=== PATIENT | female | born 1950 | race Asian ===

== ENCOUNTER 2020-08-22 14:28 | Inpatient (IN) | payer MEDICARE ==
[~2020-08-22] VITALS: Ht 154.9 cm; Wt 78.3 kg
--- NOTE | 2020-08-22 14:45 | NUR ---
Note watson in EDM - 08/22/20 at 1449 by ESTHER ED Nurse Note: Pt ambulated to ed stating that she feels like shes being choked, has epigastric stomach pain, headaches, pt reports that she felt hungry angelica that was the pain but after she ate she still didnt feel good
[2020-08-22 14:47] VITALS: BP 171/84
--- NOTE | 2020-08-22 14:49 | NUR ---
ED Nurse Note: Pt ambulated to ed stating that she feels like shes being choked, has substernal chest pain, headaches, pt reports that she felt hungry and that may be why she has headaches but after she ate she still didnt feel good. Pt reports that she took eliquis DOUGH CATCHER and her amlodipine. pt is aox4 on room air, sinus blaine between 45-55
--- NOTE | 2020-08-22 15:02 | NUR ---
ED Nurse Note: Pt ambulated to restroom
--- NOTE | 2020-08-22 15:06 | Emergency Room Report ---
History of Present Illness General Chief Complaint: Chest Pain Source: Patient Present Illness HPI 70-year-old female history of hypertension prediabetes, some form of cardiac problems patient cannot elaborate, presents with chest pain that has been ongoing since 12 PM appears to be aggravated with exertion alleviated throughout severity is moderate, constant endorses some nausea pain is described as sharp pointy no diaphoresis no history of prior heart attacks patient presents for evaluation and treatment Allergies: Coded Allergies: No Known Allergies (Unverified , 08/22/20) COVID-19 Screening Contact w/high risk pt: No Experienced COVID-19 symptoms?: No COVID-19 Testing performed BRAND ADVOCATE: No Patient History Past Medical History: see triage record Reviewed Nursing Documentation: PMH: Agreed; PSxH: Agreed Nursing Documentation-PMH Hx Hypertension: Yes Review of Systems All Other Systems: negative except mentioned in HPI Physical Exam Vital Signs Date Time Temp Pulse Resp B/P (MAP) Pulse Ox O2 Delivery O2 Flow Rate FiO2 08/22/20 14:39 98.1 47 20 171/84 (113) 99 Room Air Sp02 EP Interpretation: reviewed, normal General Appearance: well appearing, no apparent distress, alert Head: normocephalic, atraumatic Eyes: bilateral eye PERRL, bilateral eye EOMI ENT: uvula midline, moist mucus membranes Neck: supple, thyroid normal, supple/symm/no masses Respiratory: lungs clear, no respiratory distress, no retraction, no accessory muscle use Cardiovascular #1: normal peripheral pulses, regular rate, rhythm, no edema, no gallop, no murmur Gastrointestinal: non tender, soft, no guarding, no rebound Musculoskeletal: normal inspection Neurologic: alert, oriented x3 Psychiatric: mood/affect normal Skin: no rash, warm/dry Medical Decision Making Diagnostic Impression: Primary Impression: Chest pain Qualified Codes: R07.9 - Chest pain, unspecified ER Course ddx includes ACS, pulmonary embolism, pneumothorax, pneumonia. Patient given NTG, and Aspirin Plan for admission rule out ACS, patient initially to be transferred spoke with Dr. Benitez at [facility], patient approved to stay at [facility] Patient admitted to Dr. Palencia Laboratory Tests Test 08/22/20 14:45 08/22/20 15:10 08/22/20 18:00 White Blood Count 6.3 K/UL (4.8-10.8) Red Blood Count 5.11 M/UL (4.20-5.40) Hemoglobin 16.6 G/DL (12.0-16.0) H Hematocrit 49.4 % (37.0-47.0) H Mean Corpuscular Volume 97 FL (80-99) Mean Corpuscular Hemoglobin 32.5 PG (27.0-31.0) H Mean Corpuscular Hemoglobin Concent 33.6 G/DL (32.0-36.0) Red Cell Distribution Width 13.6 % (11.6-14.8) Platelet Count 195 K/UL (150-450) Mean Platelet Volume 7.9 FL (6.5-10.1) Neutrophils (%) (Auto) 68.0 % (45.0-75.0) Lymphocytes (%) (Auto) 25.5 % (20.0-45.0) Monocytes (%) (Auto) 4.4 % (1.0-10.0) Eosinophils (%) (Auto) 1.0 % (0.0-3.0) Basophils (%) (Auto) 1.1 % (0.0-2.0) Prothrombin Time 11.4 SEC (9.30-11.50) Prothrombin Time INR 1.0 (0.9-1.1) Activated Partial Thromboplast Time 26 SEC (23-33) Sodium Level 137 MMOL/L (136-145) Potassium Level 3.5 MMOL/L (3.5-5.1) Chloride Level 101 MMOL/L (98-107) Carbon Dioxide Level 27 MMOL/L (21-32) Anion Gap 9 mmol/L (5-15) Blood Urea Nitrogen 9 mg/dL (7-18) Creatinine 0.8 MG/DL (0.55-1.30) Estimated Glomerular Filtration Rate > 60 mL/min (>60) Glucose Level 199 MG/DL (74-106) H Calcium Level 8.5 MG/DL (8.5-10.1) Total Bilirubin 0.6 MG/DL (0.2-1.0) Aspartate Amino Transferase (AST) 28 U/L (15-37) Alanine Aminotransferase (ALT) 20 U/L (12-78) Alkaline Phosphatase 134 U/L (46-116) H Troponin I 0.028 ng/mL (0.000-0.056) 0.028 ng/mL (0.000-0.056) Pro-B-Type Natriuretic Peptide 155 pg/mL (0-125) H Total Protein 7.2 G/DL (6.4-8.2) Albumin 3.7 G/DL (3.4-5.0) Globulin 3.5 g/dL Albumin/Globulin Ratio 1.1 (1.0-2.7) Lipase 104 U/L (73-393) Urine Color Pale yellow Urine Appearance Slightly cloudy Urine pH 7 (4.5-8.0) Urine Specific [place] 1.010 (1.005-1.035) Urine Protein 1+ (NEGATIVE) H Urine Glucose (UA) 2+ (NEGATIVE) H Urine Ketones Negative (NEGATIVE) Urine Blood Negative (NEGATIVE) Urine Nitrite Positive (NEGATIVE) H Urine Bilirubin Negative (NEGATIVE) Urine Urobilinogen Normal MG/DL (0.0-1.0) Urine Leukocyte Esterase Negative (NEGATIVE) Urine RBC 0 /HPF (0 - 2) Urine WBC 0-2 /HPF (0 - 2) Urine Squamous Epithelial Cells Moderate /LPF (NONE/OCC) H Urine Bacteria Moderate /HPF (NONE) H Microbiology Date/Time Source Procedure Growth Status 08/22/20 14:53 Nasopharynx SARS-CoV-2 RdRp Gene Assay - Final Complete EKG Diagnostic Results Troponin ordered: Yes When was troponin ordered?: Aug 22, 2020 - 1431 EKG Time: 14:41 EP Interpretation: Sinus bradycardia, rate 51, QTc 473, no acute ST elevations, normal axis Rhythm Strip Diag. Results Rhythm Strip Time: 15:07 EP Interpretation: yes Rate: 60 Rhythm: NSR, other - PVCs noted Chest X-Ray Diagnostic Results Chest X-Ray Diagnostic Results : Chest X-Ray Ordered: Yes # of Views/Limited/Complete: 1 View Indication: Chest Pain EP Interpretation: Yes Interpretation: no consolidation, no effusion, no pneumothorax, no acute cardiopulmonary disease Impression: No acute disease Electronically Signed by: Jose Mistry MD Last Vital Signs Date Time Temp Pulse Resp B/P (MAP) Pulse Ox O2 Delivery O2 Flow Rate FiO2 08/22/20 14:47 48 20 Room Air 08/22/20 14:47 98.1 171/84 99 Disposition: ADMITTED INPATIENT Condition: Stable Referrals: [facility],REFERR[facility] (PCP) Jose Mistry MD Aug 22, 2020 15:06
--- NOTE | 2020-08-22 15:10 | NUR ---
ED Nurse Note: Urine sent to lab
[2020-08-22 15:14] LABS: ANION GAP 9 mmol/L (5-15); BLOOD UREA NITROGEN 9 mg/dL (7-18); CALCIUM 8.5 MG/DL (8.5-10.1); CARBON DIOXIDE 27 MMOL/L (21-32); CHLORIDE 101 MMOL/L (98-107); CREATININE 0.8 MG/DL (0.55-1.30); POTASSIUM 3.5 MMOL/L (3.5-5.1); SODIUM 137 MMOL/L (136-145)
[2020-08-22] MEDS ORDERED: Nitroglycerin 2% oint pkt TOPIC ONE (15:15)
[2020-08-22 15:21] LABS: BASOPHILS % (AUTO) 1.1 % (0.0-2.0); HEMATOCRIT 49.4 % (37.0-47.0); HEMOGLOBIN 16.6 G/DL (12.0-16.0); LYMPHOCYTES % (AUTO) 25.5 % (20.0-45.0); MEAN CORPUSCULAR VOLUME 97 FL (80-99); MONOCYTES % (AUTO) 4.4 % (1.0-10.0); PLATELET COUNT 195 K/UL (150-450); RED BLOOD COUNT 5.11 M/UL (4.20-5.40); RED CELL DISTRIBUTION WIDTH 13.6 % (11.6-14.8); WHITE BLOOD COUNT 6.3 K/UL (4.8-10.8)
[2020-08-22 15:24] LABS: ALANINE AMINOTRANSFERASE 20 U/L (12-78); ALBUMIN 3.7 G/DL (3.4-5.0); ALBUMIN/GLOBULIN RATIO 1.1 (1.0-2.7); ALKALINE PHOSPHATASE 134 U/L (46-116); ASPARTATE AMINO TRANSFERASE 28 U/L (15-37); BILIRUBIN,TOTAL 0.6 MG/DL (0.2-1.0)
[2020-08-22 15:27] LABS: BILIRUBIN, URINE NEGATIVE (NEGATIVE); COLOR,URINE PALE YELLOW; GLUCOSE, URINE (UA) 2+ (NEGATIVE); KETONES,URINE NEGATIVE (NEGATIVE); LEUKOCYTE ESTERASE ,URINE NEGATIVE (NEGATIVE); NITRITE,URINE POSITIVE (NEGATIVE); PH,URINE 7 (4.5-8.0); PROTEIN,URINE 1+ (NEGATIVE); UROBILINOGEN,URINE NORMAL MG/DL (0.0-1.0)
[2020-08-22 15:40] LABS: APPEARANCE,URINE SLIGHTLY CLOUDY
[2020-08-22] MEDS ORDERED: cefTRIAXone 1 GM in NS 55 ML IVPB ONE (16:00)
[2020-08-22 16:51] VITALS: BP 150/59
--- NOTE | 2020-08-22 16:51 | NUR ---
ED Nurse Note: Pt is resting in bed. VSS.
--- NOTE | 2020-08-22 17:44 | NUR ---
patients son amilcar called stated he wants to be notified when ever the patient get admitted tl#
--- NOTE | 2020-08-22 17:51 | NUR ---
ED Nurse Note: PT given sandwhich, juice, water with ERMD consent
--- NOTE | 2020-08-22 18:02 | NUR ---
ED Nurse Note: repeat trop sent
--- NOTE | 2020-08-22 19:07 | NUR ---
HAND-OFF: Report given to AMADO Durbin.
--- NOTE | 2020-08-22 19:38 | Diagnostic Imaging Report ---
Indication: Reason For Exam: CP Technique: Single AP view of the chest. Comparison: None. Findings: Heart is mildly enlarged when accounting for projection and technique. There is no focal consolidation, pneumothorax or pleural effusion. Osseous structures demonstrate no acute abnormality. Thyroid surgical clips are noted in the upper mediastinum. IMPRESSION: Mild cardiomegaly. No airspace consolidation.
--- NOTE | 2020-08-22 19:55 | NUR ---
ED Nurse Note: Report given to AMADO Concepcion.
[2020-08-22 20:00] VITALS: BP 150/66
--- NOTE | 2020-08-22 20:00 | NUR ---
TRANSFER TO FLOOR: Patient transferred to telemetry as ordered, per ERMD. Report given to AMADO Concepcion. Patient transported via gurney in stable condition with ACLS protocol on registered nurse cardiac telemetry accompanied by RN and materials technician.
--- NOTE | 2020-08-22 20:01 | NUR ---
NURSE NOTES: Pt arrived via gurney from ER. Received report from Priscila FISCHER. Pt in stable condition. Initial assessment done. Pt is admitted for Chest pain. Pt denies any pain. Denies any n/v or SOB. Pt is fully alert and ambulatory steady but weak. Pt is continent. VS T:98.6 HR:54 R:18 BP:150/66 O2:98% on room air. Belongings list verified. cardiac monitor placed on pt running Sinus Bradycardia. No skin issues noted. Pt resting in bed comfortably. Bed in low and locked position, call light within reach, bedside table within reach. Continue to monitor. Orders given by Dr. Palencia. Orders placed.
[2020-08-23] VITALS: BP 144/60
--- NOTE | 2020-08-23 03:03 | Cardiology Progress Note ---
Subjective DATE OF SERVICE: Aug 22, 2020 Cardiology Consult completed See dictation TF Orders and care plan reviewed Objective Last 24 Hour Vital Signs Date Time Temp Pulse Resp B/P (MAP) Pulse Ox O2 Delivery O2 Flow Rate FiO2 08/23/20 00:05 Room Air 08/23/20 00:00 45 08/23/20 00:00 97.7 50 18 144/60 (88) 96 08/22/20 22:57 98.0 08/22/20 20:00 98.6 54 18 150/66 (94) 98 08/22/20 20:00 98.0 62 20 152/65 99 Room Air 08/22/20 16:51 98.1 60 24 150/59 99 Room Air 08/22/20 15:11 171/84 08/22/20 14:47 48 20 Room Air 08/22/20 14:47 98.1 48 20 171/84 99 Room Air 08/22/20 14:39 98.1 47 20 171/84 (113) 99 Room Air Laboratory Tests Test 08/22/20 14:45 08/22/20 15:10 08/22/20 18:00 08/23/20 00:20 White Blood Count 6.3 K/UL (4.8-10.8) Red Blood Count 5.11 M/UL (4.20-5.40) Hemoglobin 16.6 G/DL (12.0-16.0) H Hematocrit 49.4 % (37.0-47.0) H Mean Corpuscular Volume 97 FL (80-99) Mean Corpuscular Hemoglobin 32.5 PG (27.0-31.0) H Mean Corpuscular Hemoglobin Concent 33.6 G/DL (32.0-36.0) Red Cell Distribution Width 13.6 % (11.6-14.8) Platelet Count 195 K/UL (150-450) Mean Platelet Volume 7.9 FL (6.5-10.1) Neutrophils (%) (Auto) 68.0 % (45.0-75.0) Lymphocytes (%) (Auto) 25.5 % (20.0-45.0) Monocytes (%) (Auto) 4.4 % (1.0-10.0) Eosinophils (%) (Auto) 1.0 % (0.0-3.0) Basophils (%) (Auto) 1.1 % (0.0-2.0) Prothrombin Time 11.4 SEC (9.30-11.50) Prothromb Time International Ratio 1.0 (0.9-1.1) Activated Partial Thromboplast Time 26 SEC (23-33) Sodium Level 137 MMOL/L (136-145) Potassium Level 3.5 MMOL/L (3.5-5.1) Chloride Level 101 MMOL/L (98-107) Carbon Dioxide Level 27 MMOL/L (21-32) Anion Gap 9 mmol/L (5-15) Blood Urea Nitrogen 9 mg/dL (7-18) Creatinine 0.8 MG/DL (0.55-1.30) Estimat Glomerular Filtration Rate > 60 mL/min (>60) Glucose Level 199 MG/DL (74-106) H Calcium Level 8.5 MG/DL (8.5-10.1) Total Bilirubin 0.6 MG/DL (0.2-1.0) Aspartate Amino Transf (AST/SGOT) 28 U/L (15-37) Alanine Aminotransferase (ALT/SGPT) 20 U/L (12-78) Alkaline Phosphatase 134 U/L (46-116) H Troponin I 0.028 ng/mL (0.000-0.056) 0.028 ng/mL (0.000-0.056) 0.018 ng/mL (0.000-0.056) Pro-B-Type Natriuretic Peptide 155 pg/mL (0-125) H Total Protein 7.2 G/DL (6.4-8.2) Albumin 3.7 G/DL (3.4-5.0) Globulin 3.5 g/dL Albumin/Globulin Ratio 1.1 (1.0-2.7) Lipase 104 U/L (73-393) Urine Color Pale yellow Urine Appearance Slightly cloudy Urine pH 7 (4.5-8.0) Urine Specific [place] 1.010 (1.005-1.035) Urine Protein 1+ (NEGATIVE) H Urine Glucose (UA) 2+ (NEGATIVE) H Urine Ketones Negative (NEGATIVE) Urine Blood Negative (NEGATIVE) Urine Nitrite Positive (NEGATIVE) H Urine Bilirubin Negative (NEGATIVE) Urine Urobilinogen Normal MG/DL (0.0-1.0) Urine Leukocyte Esterase Negative (NEGATIVE) Urine RBC 0 /HPF (0 - 2) Urine WBC 0-2 /HPF (0 - 2) Urine Squamous Epithelial Cells Moderate /LPF (NONE/OCC) H Urine Bacteria Moderate /HPF (NONE) H Microbiology Date/Time Source Procedure Growth Status 08/22/20 14:53 Nasopharynx SARS-CoV-2 RdRp Gene Assay - Final Complete Yovany Munguia MD Aug 23, 2020 03:03
[2020-08-23 04:00] VITALS: BP 133/55
[2020-08-23] MEDS: Levothyroxine 125mcg tab ORAL SCH (06:28)
--- NOTE | 2020-08-23 07:20 | NUR ---
NURSE HAND-OFF REPORT: Important Events on Shift:[] Patient Status: [] Diet: [] Pending Orders: [Stress Test today] Pending Results/Labs:[] Pending MD notification:[] Latest Vital Signs: Temperature 97.5 , Pulse 45 , B/P 133 /55 , Respiratory Rate 18 , O2 SAT 96 , Room Air, O2 Flow Rate . Vital Sign Comment: [] EKG Rhythm: Sinus Bradycardia Rhythm change?: N MD Notified?: - MD Response: Latest Perales Fall Score: 30 Fall Risk: Medium Risk Safety Measures: Call light , Bed Alarm , Side Rails Side Rails x2, Bed position . Fall Precautions: Report given to [Rebeca FISCHER].
--- NOTE | 2020-08-23 07:20 | NUR ---
NURSE NOTES: pt in bed awake AOx4. pt is NPO and will be having a stress test this morning. 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 Bed is locked an in lowest position. Call light within reach. pt denies any chest pain, she is complaining of wanting to gas and having the need to burp, she feels some acid reflex.
[2020-08-23 08:00] VITALS: BP 143/53
[2020-08-23] MEDS ORDERED: Lexiscan 0.4mg/5ml syringe IV ONE (09:00)
[2020-08-23] MEDS ORDERED: Eliquis 5mg tablet ORAL SCH (09:00)
[2020-08-23] MEDS: Docusate 100mg cap ORAL SCH ×2 (10:10→18:16)
[2020-08-23] MEDS: Lisinopril 20mg tab ORAL SCH (10:10)
--- NOTE | 2020-08-23 11:33 | NUR ---
NURSE NOTES: pt's son brought a picture of medication Eliquis, pt is taking Eliquis 5mg q12hrs at home.
[2020-08-23 12:00] VITALS: BP 142/50
--- NOTE | 2020-08-23 12:06 | NUR ---
CASE MANAGEMENT:REVIEW PATIENT WALKED IN TO ER CC; CHEST/EPIGASTRIC PAIN, NAUSEA AND DIZZINESS SI: CHEST PAIN 98.1 47 20 171/84 99% ON RA TROPONIN(-) IS: ASA PO NITRO 1" IV ROCEPHIN : TO TELEMETRY PLAN: STRESS TEST
--- NOTE | 2020-08-23 15:32 | Cardiology Report ---
APPROVED REPORT EKG Measurement Heart [id number] MN [id number] <Conclusion> Sinus bradycardia with premature supraventricular complexes Cannot rule out Anterior infarct, age undetermined Abnormal ECG
[2020-08-23 16:00] VITALS: BP 135/48
--- NOTE | 2020-08-23 16:30 | History and Physical Report ---
DATE OF ADMISSION: 08/22/2020 HISTORY OF PRESENT ILLNESS: This is a 70-year-old female with history of hypertension, prediabetes, and GERD, who came to the emergency room yesterday with chest pain. The patient states she has been having this for a while and has been told by her outpatient doctor that she needs to have a cardiac stress test. The patient was seen and admitted to the hospital. A workup was initiated. Her initial laboratory testing and EKG have been normal and troponin x3 has been negative. She has been seen by Cardiology and recommendations are noted for a cardiac stress test. PAST MEDICAL HISTORY: Hypertension, gout, chronic anticoagulation with Eliquis, hyperlipidemia, hypothyroidism. REVIEW OF SYSTEMS: Denies any headaches, hematemesis, melena, hematochezia, or weight loss. PHYSICAL EXAMINATION: GENERAL: Reveals a 70-year-old female. HEENT: Unremarkable. CHEST: Lungs show clear breath sounds bilaterally. ABDOMEN: Soft. EXTREMITIES: There is no edema. NEUROLOGIC: Nonfocal. DIAGNOSTIC DATA: EKG, unremarkable. IMPRESSION: 1. Acute coronary syndrome. 2. Chronic anticoagulation. 3. Hypertension. 4. Hyperlipidemia. DISCUSSION: We will admit to the hospital. Consult Cardiology. Stress test ordered. Continue medications. We will follow carefully. Elia Palencia M.D. DR: HARI JOB#: [id number] CC:
[2020-08-23] MEDS: Eliquis 5mg tablet ORAL SCH (18:16)
--- NOTE | 2020-08-23 18:57 | NUR ---
NURSE NOTES: REPORTED INCREASED TROPONIN TO dR. PUGA, AND ALSO. PT WAS SB W/ 1ST AVBLOCK.
--- NOTE | 2020-08-23 19:29 | NUR ---
NURSE HAND-OFF REPORT: Important Events on Shift: pt awaiting stress test results, Troponin trending up notified Dr. Munguia Patient Status: full Diet: cardiac Pending Orders: Pending Results/Labs: Pending MD notification: Latest Vital Signs: Temperature 98.7 , Pulse 58 , B/P 135 /48 , Respiratory Rate 18 , O2 SAT 97 , Room Air, O2 Flow Rate . Vital Sign Comment: EKG Rhythm: Sinus Bradycardia w/ 1avblock Rhythm change?: N MD Notified?: -yes doctor shona CARREON Response: Latest Perales Fall Score: 30 Fall Risk: Medium Risk Safety Measures: Call light , Bed Alarm Zone 1, Side Rails Side Rails x2, Bed position . Fall Precautions: y Yellow Socks y Yellow Gown y Patient Fall Education y Report given to Emili/AMADO .
--- NOTE | 2020-08-23 19:35 | NUR ---
NURSE NOTES: Received report from Rebeca FISCHER. Patient is sitting in semi-fowlers position relaxing watching TV. Patient is in stable condition. Patient is alert and oriented x4 speaks Ukrainian and is able to made need known. No complaints of pain at this time. No s/s of acute distress. Patient has a left hand 20G s/l. Patent and Flushed. No bleeding or erythema noted. Patient was placed on fall precaution but is ambulatory. Patient belonging and call light with in reach. Patient was educated on how to use the call light to call for help and for assistance with needs. Patient verbalized understanding. Bed in lowest position and locked. Will continue plan of care.
[2020-08-23 20:00] VITALS: BP 125/50
[2020-08-23] MEDS ORDERED: Atorvastatin 20mg tab ORAL SCH (21:00)
[2020-08-24] VITALS: BP 130/50
--- NOTE | 2020-08-24 00:37 | Cardiology Progress Note ---
Subjective DATE OF SERVICE: Aug 23, 2020 No chest pain today. Monitor: Sinus with 1st degree AV block and episodes of asymptomatic bradycardia Troponins negative Objective Last 24 Hour Vital Signs Date Time Temp Pulse Resp B/P (MAP) Pulse Ox O2 Delivery O2 Flow Rate FiO2 08/23/20 21:00 Room Air 08/23/20 20:00 97.5 50 18 125/50 (75) 96 08/23/20 20:00 63 08/23/20 16:00 54 08/23/20 16:00 98.7 58 18 135/48 (77) 97 08/23/20 12:00 98.7 61 19 142/50 (80) 96 08/23/20 12:00 47 08/23/20 10:10 143/53 08/23/20 09:00 Room Air 08/23/20 08:00 96.8 56 19 143/53 (83) 96 08/23/20 08:00 52 08/23/20 04:00 97.5 52 18 133/55 (81) 96 08/23/20 04:00 45 HEENT: normal ENT inspection RHYTHM: NSR LUNGS: lungs clear bilaterally CARDIAC: regular rhythm, normal S1 and S2, bradycardia ABDOMEN: normal bowel sounds, non tender, soft, no organomegaly EXTREMITIES: normal range of motion, non-tender, No edema Laboratory Tests Test 08/23/20 07:55 08/23/20 15:47 Troponin I 0.018 ng/mL (0.000-0.056) 0.034 ng/mL (0.000-0.056) Microbiology Date/Time Source Procedure Growth Status 08/22/20 15:10 Urine,Clean Catch Urine Culture - Preliminary NO GROWTH Resulted 08/22/20 14:53 Nasopharynx SARS-CoV-2 RdRp Gene Assay - Final Complete Assessment/Plan Assessment/Plan Possible acute coronary syndrome Hx DVT Hyperlipidemia Sinus bradycardia Hypertension Metabolic syndrome Atrial ectopy Lexiscan stress Antiplt and antilipid rx Final medx regimen to follow - once Lexiscan resulted Yovany Munguia MD Aug 24, 2020 00:37
--- NOTE | 2020-08-24 01:15 | Consultation ---
DATE OF CONSULTATION: 08/22/2020 CARDIOLOGY CONSULTATION REQUESTING PHYSICIAN: Elia Palencia MD REASON FOR CONSULTATION: Chest pain. HISTORY OF PRESENT ILLNESS: This 70-year-old Somali has multiple risk factors for premature and accelerated coronary artery disease. She states that she has a history of labile blood pressure as well and has been hospitalized in the past with chest pain. She was hospitalized at [place] years ago and had a stress test, which she states was "okay," but not normal. She has been managed medically since. She presented to the hospital with chest pain. This pain has been recurring, but increasing in frequency and occurred at rest. She had been recommended in the past to undergo a stress test, but has not been able to complete it. PAST MEDICAL HISTORY: Hypertension, hyperuricemia, history of DVT, hyperlipidemia, hypothyroidism, glucose intolerance. ALLERGIES: None. MEDICATIONS: Reviewed. FAMILY HISTORY: Noncontributory. SOCIAL HISTORY: Nonsmoker. No alcohol or substance abuse. REVIEW OF SYSTEMS: A 10-point review of systems is performed. All systems negative other than noted above. PHYSICAL EXAMINATION: VITAL SIGNS: Blood pressure 171/84, pulse 48, respirations 20, afebrile. Room air oxygen saturation is 99%. LUNGS: Clear. CARDIAC: Regular. Normal S1, S2 with a fourth heart sound. Jugular venous pressure normal. No bruits. ABDOMEN: Soft. EXTREMITIES: No edema. Chest x-ray, no acute process. EKG, sinus bradycardia, first-degree AV block, occasional PACs. LABORATORY DATA: Notable for troponin of 0.028 and normal chemistry panel. IMPRESSION: 1. Acute coronary syndrome. 2. History of hyperlipidemia. 3. Hypertension with history of labile blood pressure. 4. Metabolic syndrome. 5. Presumed history of DVT, on chronic anticoagulation. 6. Possible history of atrial tachyarrhythmias. 7. Sinus bradycardia. 8. Premature atrial contractions. PLAN: 1. Cardiac monitoring. 2. Anti-platelet and anti-lipid therapy. 3. Continue anticoagulation. 4. Lexiscan, assessment of coronary flow reserve. 5. Optimize blood pressure parameters as needed. 6. Serial troponin levels, lipid panel, and thyroid function. Yovany Munguia M.D. DR: TELLO JOB#: [id number] CC:
[2020-08-24 04:00] VITALS: BP 131/54
[2020-08-24] MEDS: Levothyroxine 125mcg tab ORAL SCH (05:47)
--- NOTE | 2020-08-24 07:30 | NUR ---
NURSE HAND-OFF REPORT: Important Events on Shift: Patient as ordered a 2D echo for 08/24/2020 Patient Status: Stable Diet: Cardiac Pending Orders: Pending Results/Labs: Pending MD notification: Latest Vital Signs: Temperature 97.2 , Pulse 41 , B/P 131 /54 , Respiratory Rate 18 , O2 SAT 98 , Room Air, O2 Flow Rate . Vital Sign Comment: EKG Rhythm: Sinus Bradycardia Rhythm change?: N MD Notified?: - MD Response: Latest Perales Fall Score: 30 Fall Risk: Medium Risk Safety Measures: Call light , Bed Alarm Zone 1, Side Rails Side Rails x2, Bed position . Fall Precautions: Yellow Socks Yellow Gown Patient Fall Education Report given to Rebeca FISCHER.
[2020-08-24 07:50] LABS: CHOLESTEROL 190 MG/DL (< 200); HDL CHOLESTEROL 60 MG/DL (40-60); TRIGLYCERIDES 133 MG/DL (30-150)
[2020-08-24 08:00] VITALS: BP 158/54
--- NOTE | 2020-08-24 08:06 | NUR ---
NURSE NOTES: pt. just had breakfast. AOx4, pt on cardiac nurse practitioner no signs of cardiac or respiratory distress. pt is not reporting pain at this time. Iv line patent. Call light within reach and bed in lowest position and locked. Will continue to monitor
--- NOTE | 2020-08-24 09:30 | NUR ---
NURSE NOTES: pt was not given amlodipine HR 54, notified doctor Slime. No parameters needed for meds. pt will be DC today.
[2020-08-24] MEDS: Lisinopril 20mg tab ORAL SCH (09:56)
[2020-08-24] MEDS: Docusate 100mg cap ORAL SCH (09:57)
[2020-08-24] MEDS: Eliquis 5mg tablet ORAL SCH (09:58)
--- NOTE | 2020-08-24 10:29 | Pulmonology Progress Note ---
Subjective Interval Events: None new Constitutional: Reports: no symptoms HEENT: Repors: no symptoms Respiratory: Reports: no symptoms Cardiovascular: Reports: no symptoms Gastrointestinal/Abdominal: Reports: no symptoms Allergies: Coded Allergies: No Known Allergies (Unverified , 08/22/20) Objective Last 24 Hour Vital Signs Date Time Temp Pulse Resp B/P (MAP) Pulse Ox O2 Delivery O2 Flow Rate FiO2 08/24/20 09:56 158/54 08/24/20 04:00 97.2 42 18 131/54 (79) 98 08/24/20 04:00 41 08/24/20 00:00 96.6 53 20 130/50 (76) 96 08/24/20 00:00 47 08/23/20 21:00 Room Air 08/23/20 20:00 97.5 50 18 125/50 (75) 96 08/23/20 20:00 63 08/23/20 16:00 54 08/23/20 16:00 98.7 58 18 135/48 (77) 97 08/23/20 12:00 98.7 61 19 142/50 (80) 96 08/23/20 12:00 47 Intake and Output 08/23/20 08/24/20 19:00 07:00 Intake Total 120 ml Output Total 1200 ml Balance -1080 ml Intake Oral 120 ml Output Urine Total 1200 ml # Voids 3 3 # Bowel Movements 1 1 General Appearance: no acute distress HEENT: normocephalic Respiratory: chest wall non-tender, lungs clear Cardiovascular: normal peripheral pulses, normal rate Microbiology Date/Time Source Procedure Growth Status 08/22/20 15:10 Urine,Clean Catch Urine Culture - Preliminary NO GROWTH Resulted 08/22/20 14:53 Nasopharynx SARS-CoV-2 RdRp Gene Assay - Final Complete Laboratory Tests 08/23/20 15:47: Troponin I 0.034 08/24/20 06:09: Hemoglobin A1c 6.2H, Pro-B-Type Natriuretic Peptide 71, Triglycerides Level 133, Cholesterol Level 190, LDL Cholesterol 109H, HDL Cholesterol 60, Cholesterol/HDL Ratio 3.2L, Thyroid Stimulating Hormone (TSH) 5.814H Current Medications Medications (Trade) Dose Ordered Sig/Sandro Route PRN Reason Start Time Stop Time Status Last Admin Dose Admin Acetaminophen (Tylenol) 650 mg Q6H PRN ORAL For Headache 08/22/20 22:30 09/21/20 22:29 08/22/20 22:27 Allopurinol (allopurinoL) 150 mg DAILY ORAL 08/23/20 09:00 09/22/20 08:59 08/24/20 09:57 Amlodipine Besylate (Norvasc) 10 mg DAILY ORAL 08/23/20 09:00 09/22/20 08:59 Apixaban (Eliquis) 5 mg BID ORAL 08/23/20 18:00 11/21/20 17:59 08/24/20 09:58 Atorvastatin Calcium (Lipitor) 40 mg BEDTIME ORAL 08/23/20 21:00 11/21/20 20:59 08/23/20 21:24 Docusate Sodium (Colace) 100 mg TWICE A DAY ORAL 08/23/20 09:00 09/22/20 08:59 08/24/20 09:57 Famotidine (Pepcid) 20 mg DAILY ORAL 08/23/20 09:00 11/21/20 08:59 08/24/20 09:56 Levothyroxine Sodium (Synthroid) 125 mcg DAILY@0630 ORAL 08/23/20 06:30 09/22/20 06:29 08/24/20 05:47 Lisinopril (PriniviL) 40 mg DAILY ORAL 08/23/20 09:00 09/22/20 08:59 08/24/20 09:56 Meloxicam (Mobic) 7.5 mg BID ORAL 08/23/20 09:00 09/22/20 08:59 08/24/20 09:58 Assessment/Plan Assessment/Plan IMPRESSION: 1. Acute coronary syndrome. 2. Chronic anticoagulation. 3. Hypertension. 4. Hyperlipidemia. DISCUSSION: Await stress test reults No further chest pain or pressure Seen by Cardiology. Continue medications. Likely dc home if stress test negative Amy De Jesus Omar Syed MD Aug 24, 2020 10:29
[2020-08-24] MEDS ORDERED: LEVOTHYROXINE125 MCG ORAL (10:32)
[2020-08-24] MEDS ORDERED: FAMOTIDINE20 MG ORAL (10:32)
[2020-08-24] MEDS ORDERED: ELIQUIS5 MG ORAL (10:32)
[2020-08-24] MEDS ORDERED: NORVASC10 MG ORAL (10:32)
[2020-08-24] MEDS ORDERED: COLACE100 MG ORAL (10:32)
[2020-08-24] MEDS ORDERED: LIPITOR20 MG ORAL (10:32)
[2020-08-24] MEDS ORDERED: MOBIC7.5 MG ORAL (10:32)
[2020-08-24] MEDS ORDERED: ALLOPURINOL100 M1 ORAL (10:32)
[2020-08-24] MEDS ORDERED: PRINIVIL20 MG ORAL (10:32)
--- NOTE | 2020-08-24 11:50 | Diagnostic Imaging Report ---
Indications: Chest pain Technique: See cardiology report for details of LexiScan stress testing. During LexiScan infusion, IV administration 30.5 mCi 99 M technetium Myoview. SPECT and planar images obtained. SPECT images gated to 8 phases of the cardiac cycle were also obtained, and reformatted into cine images for evaluation of ejection fraction. On the subsequent day, resting images obtained using IV administration 10.2 mCi 99 M technetium Myoview. Comparison: None Findings: Calculated ejection fraction of 76%. No definite focal fixed or reversible perfusion defect is appreciated. No discrete abnormality appreciated on the generated defect blackout maps. Regular cardiac motion appears maintained. IMPRESSION: Nonischemic clinical response to pharmacologic stress, per cardiology report Nonischemic electrocardiographic response to pharmacologic stress, per cardiology report No imaging findings to suggest ischemia, at level of stress achieved. Calculated post stress ejection fraction 76%
[2020-08-24 12:00] VITALS: BP 147/55
--- NOTE | 2020-08-24 13:11 | Cardiology Progress Note ---
Subjective DATE OF SERVICE: Aug 24, 2020 No chest pain today. Monitor: Sinus with 1st degree AV block and episodes of asymptomatic bradycardia during sleep only. Troponins negative Myocardial perfusion scan normal with EF 76%. Objective Last 24 Hour Vital Signs Date Time Temp Pulse Resp B/P (MAP) Pulse Ox O2 Delivery O2 Flow Rate FiO2 08/24/20 09:56 158/54 08/24/20 09:00 Room Air 08/24/20 08:00 98.8 54 19 158/54 (88) 96 08/24/20 08:00 54 08/24/20 04:00 97.2 42 18 131/54 (79) 98 08/24/20 04:00 41 08/24/20 00:00 96.6 53 20 130/50 (76) 96 08/24/20 00:00 47 08/23/20 21:00 Room Air 08/23/20 20:00 97.5 50 18 125/50 (75) 96 08/23/20 20:00 63 08/23/20 16:00 54 08/23/20 16:00 98.7 58 18 135/48 (77) 97 HEENT: normal ENT inspection RHYTHM: NSR LUNGS: lungs clear bilaterally CARDIAC: regular rhythm, normal S1 and S2, bradycardia ABDOMEN: normal bowel sounds, non tender, soft, no organomegaly EXTREMITIES: normal range of motion, non-tender, No edema Laboratory Tests Test 08/23/20 15:47 08/24/20 06:09 Troponin I 0.034 ng/mL (0.000-0.056) Hemoglobin A1c 6.2 % (4.3-6.0) H Pro-B-Type Natriuretic Peptide 71 pg/mL (0-125) Triglycerides Level 133 MG/DL (30-150) Cholesterol Level 190 MG/DL (< 200) LDL Cholesterol 109 mg/dL (<100) H HDL Cholesterol 60 MG/DL (40-60) Cholesterol/HDL Ratio 3.2 (3.3-4.4) L Thyroid Stimulating Hormone (TSH) 5.814 uiU/mL (0.358-3.740) Microbiology Date/Time Source Procedure Growth Status 08/22/20 15:10 Urine,Clean Catch Urine Culture - Preliminary NO GROWTH Resulted 08/22/20 14:53 Nasopharynx SARS-CoV-2 RdRp Gene Assay - Final Complete Assessment/Plan Assessment/Plan Normal myocardial perfusion Probable microvascular CAD Hx DVT Hyperlipidemia Sinus bradycardia of no clinical significance Hypertension Metabolic syndrome Atrial ectopy - non-sustained Discharge home on current medx regimen DIet, exercise program, and meds reviewed with patient Yovany Munguia MD Aug 24, 2020 13:11
--- NOTE | 2020-08-24 15:27 | NUR ---
NURSE NOTES: pt had Vtach episode, notified doctor Ezra. Doctor said pt is still ok to be DC.
--- NOTE | 2020-08-24 15:40 | NUR ---
NURSE NOTES: pt, left via private vehicle with her son. pt IV was discontinued and cardiac surgeon was taken off. Pt took all her belongings with her. Pt was given DC instructions, they were explained to both pt and her son. Prescriptions were also given to pt, she knows they need to get filled. Pt educated on medication she needs to continue at home. She also knows to make follow up appt. with PCP within 1 week of DC. All personal belongings with taken back home with pt including cell ph and environmental resource specialist.
--- NOTE | 2020-08-24 16:04 | NUR ---
INSURANCE DC INSTRUCTIONS AND PROGRESS NOTES FAXED TO #[phone] FAX# [phone] REVIEWS/CLINICALS
== END 2020-08-24 16:39 | disposition home or self-care (01) | DRG 311 ==
LOC: EMR 14:53 → 2E 18:23 → EDBEDREQ 19:21
DX: I24.9 Acute ischemic heart disease, unspecified (principal); E88.81 Metabolic syndrome and other insulin resistance; I10 Essential (primary) hypertension; I49.1 Atrial premature depolarization; I25.10 Atherosclerotic heart disease of native coronary artery without angina pectoris; I44.0 Atrioventricular block, first degree; R00.1 Bradycardia, unspecified; I49.3 Ventricular premature depolarization; R73.03 Prediabetes; K21.9 Gastro-esophageal reflux disease without esophagitis; M10.9 Gout, unspecified; E78.5 Hyperlipidemia, unspecified; E03.9 Hypothyroidism, unspecified; Z86.718 Personal history of other venous thrombosis and embolism; Z79.01 Long term (current) use of anticoagulants
CPT/HCPCS: 36415; 71045; 78452; 80053; 80061; 81003; 83036; 83690; 83880; 84443; 84484; 85025; 85610; 85730; 87086; 93005; 93017; 93306; 96365; 99285; J2785; U0002